=== PATIENT | male | born 1995 | race African-American/Black ===

== ENCOUNTER 2019-05-11 20:40 | Emergency (ER) | payer OTHER ==
[~2019-05-11] VITALS: Ht 180.3 cm; Wt 76.8 kg
[2019-05-11 20:46] VITALS: BP 138/80
[2019-05-11] MEDS ORDERED: ACETAMINOPHEN 500 MG TABLET PO ONE (22:15)
== END 2019-05-11 22:49 | disposition home or self-care (01) ==
LOC: EMS 20:40
DX: K64.4 Residual hemorrhoidal skin tags (principal)